=== PATIENT | male | born 1970 | race Caucasian/White ===

== ENCOUNTER 2019-04-07 19:40 | Emergency (ER) | payer SELFPAY ==
--- NOTE | 2019-04-07 21:48 | ED Physician Chart ---
ED Chief Complaint/HPI - Patient Information Date Seen:: 04/07/19 Time Seen:: 20:35 Chief Complaint:: Abdominal pain. History of Present Illness:: Pt came in by private auto because of abdominal pain since about 5:30 pm today. Pain is characterized as intermittent, sharp, and located at R flank with radiation to right groin. Pt has h/o renal stone about 10 years ago with similar symptoms. No fever. No N/V/D. Last BM at about 7 pm that was normal in color/consistency. No hematochezia or melena. No gross hematuria. ? dysuria, no urinary urgency or frequency. Pt has not had any pain medication today. Pt does not give consistent history. Allergies:: Allergies Allergy/AdvReac Type Severity Reaction Status Date / Time ibuprofen [From Motrin] Allergy Verified 04/07/19 20:24 ketorolac [From Toradol] Allergy Verified 04/07/19 20:24 Vitals:: Vital Signs - 8 hr 04/07/19 20:24 Temp 98.7 F HR 78 RR 19 BP 139/92 O2 Sat % 98 Historian:: Patient Family MD/PCP:: unknown LMP:: N/A Review:: Nurse's Note Reviewed ED Review of Systems - Review of Systems General/Constitutional: No fever, No chills, No weight loss, No weakness, No edema, No loss of appetite Skin: No skin lesions, No rash, No bruising Head: No headache, No light-headedness Eyes: No loss of vision, No pain, No diplopia ENT: No earache, No nasal drainage, No sore throat Neck: No neck pain, No thyromegaly, No stiffness Cardio Vascular: No chest pain Pulmonary: No SOB, No cough, No wheezing GI: No nausea, No vomiting, No diarrhea, Pain, No melena, No hematochezia, No constipation, No hematemesis G/U: Dysuria (?), No frequency, No hematuria Musculoskeletal: No bone or joint pain Endocrine: No polydipsia Psychiatric: No prior psych history Hematopoietic: No bruising, No lymphadenopathy Allergic/Immuno: No urticaria, No angioedema Neurological: No syncope, No focal symptoms, No weakness, No paresthesia, No headache, No confusion ED Past Medical History - Past Medical History Past Medical History: No significant medical hx Family History: Diabetes Melitus (in brother.), Cancer (mother has breast CA) Social History: Non Smoker, No Alcohol, No Drug Use, , Employed, Other ( lives with his .) Employment:: auto detailing. Surgical History: other (Back surgeries x 5 with last one in 2011.) Psychiatricy History: None Medication: None Family Medical History - Family Member Mother History Unknown: Yes ED Physical Exam - Physical Examination General/Constitutional: Awake, Well-developed, well-nourished (male), Alert, No distress, Non-toxic appearing, Ambulatory Other Gen/Cons comments:: Breathes comfortably, speaks clearly. Head: Atraumatic Eyes: Lids, conjuctiva normal, PERRL, EOMI Skin: Nl inspection, No rash, Well hydrated, No lymphadenopathy ENMT: External ears, nose nl, Nasal exam nl, Oropharynx nl Neck: Nontender, Full ROM w/o pain, No nuchal rigidity, No mass Respiratory: Nl effort/Exclusion, Clear to Auscultation, No Wheeze/Rhonchi/Rales Cardio Vascular: RRR, No murmur, gallop, rubs GI: No organomegaly, No hernia, Normal BS's, Nondistended, No mass/bruits, No McBurney tenderness Other GI comments:: Abdomen is soft. Tenderness at right flank. No R/G. Negative Pineda's, White Swan's , and Hanna Trujillo's signs : No CVA tenderness Extremities: No edema Neuro/Psych: Alert/oriented (oriented x 3), Mood normal, Normal gait, No focal deficits ED Septic Shock - . Is Septic Shock (SBP<90, OR Lactate>4 mmol\L) present?: No - <6hrs of presentation: Vital Signs: Vital Signs - 8 hr 04/07/19 20:24 Temp 98.7 F HR 78 RR 19 BP 139/92 O2 Sat % 98 ED Reassessment (Disposition) - Reassessment Reassessment:: [id number] I was just informed by nursing staff that pt had just walked out. Pt did not wait to discuss with me prior to his departure. Pt eloped without completion of this ER visit. - Diagnosis Diagnosis:: Abdominal pian. Possible drug seeking behavior. - Patient Disposition Discharge/Transfer:: Elope/AWOL Time:: 22:00 Condition at Disposition:: Stable
[2019-04-07] MEDS ORDERED: Acetaminophen 500 MG TAB PO ONE (22:02)
== END 2019-04-07 22:00 | disposition left against medical advice (07) ==
LOC: ER 19:40
DX: R10.9 Unspecified abdominal pain (principal); Z88.6 Allergy status to analgesic agent
CPT/HCPCS: Z7502